=== PATIENT | female | born 1950 | race Caucasian/White ===

== ENCOUNTER 2017-01-21 14:02 | Emergency (ER) | payer MEDICARE, MEDICAID ==
[~2017-01-21] VITALS: Ht 165.1 cm; Wt 83.1 kg
[~2017-01-21 14:02] MED LIST: ALPR-240 PO; CYAN10009 PO; FLAX100011 PO; FURO80TA63 PO; GLUC-100 PO; LEVO125T11 PO; MOME17SP2 EA NOSTRIL; MULT-806 PO; NAPR220C11 PO; POTA20TA10 PO; PROP40TA PO; QUET25TA19 PO; SPIR25TA69 PO; TRAM-261 PO; VITA400T7 PO
--- OUTSIDE RECORDS SUMMARY | 2017-01-21 14:08 | XMS REPORT | Referral Summary ---
Author Author [facility] Organization [facility] Address Unknown Phone Unavailable Care Team Providers Care Dining Host Name Role Phone Abby Singh Primary Care Physician [phone] Encounter VC Date(s): 11/16/16 - 11/16/16 [facility] [address] [place] [address] [place] [id number] Discharge Diagnosis: S/p laparoscopic cholecystectomy Discharge Disposition: 01-Home or Self Care Attending Physician: Deandre Murguia MD Admitting Physician: Deandre Murguia MD Referring Physician: Tunde Singh MD Vital Signs Most recent to 1 oldest [Reference Range]: Temperature Tympanic 36.6 degC [36.6-38.1 degC] (11/16/16 10:28 AM) Problem List Condition Effective Dates Status Health Status Informant Alopecia(Confirmed) Active Anxiety state, Active unspecified(Confirme d) Abnormal blood Active sugar(Confirmed) Cardiomegaly(Confirm Active ed) Cataracts(Confirmed) Active Chronic Active fatigue(Confirmed) Chronic urinary Active tract infection(Confirmed) Bone spurs - Active neck(Confirmed) Thyroid Active disease(Confirmed) Other diseases of Active nasal cavity and sinuses(Confirmed) Disturbance of Active salivary secretion(Confirmed) Edema(Confirmed) Active Blood pressure Active elevated(Confirmed) Fibromyalgia(Confirm Active ed) Goiter(Confirmed) Active Hearing Active loss(Confirmed) Hypothyroidism(Confi Active rmed) Cerumen Active impaction(Confirmed) Elevated blood Active sugar(Confirmed) Hepatitis(Confirmed) Active Irregular Active heartbeat(Confirmed) Jaundice(Confirmed) Active Joint Active pain(Confirmed) Chronic knee Active pain(Confirmed) Obesity(Confirmed) Active Obesity(Confirmed) Active patient Obesity(Confirmed) Active patient OA Active (osteoarthritis)(Con firmed) Palpitations(Confirm Active ed) Chronic venous Active insufficiency(Confir med) Chronic Active insomnia(Confirmed) Plantar fasciitis, Active right(Confirmed) Rheumatic fever x Active 3(Confirmed) STD (sexually Active transmitted disease)(Confirmed) Tendonitis(Confirmed Active ) Tinnitus(Confirmed) Active Allergies, Adverse Reactions, Alerts Substance Reaction Severity Status acetaminophen Active HYDROcodone Active ibuprofen Active Kenalog Active sulfanilamide topical Active Medications acyclovir 200 mg oral capsule See Instructions, TAKE ONE CAPSULE 5 TIMES DAILY FOR 5 DAYS., # 25 caps, eRx: [facility] #[id number], TAKE ONE CAPSULE 5 TIMES DAILY FOR 5 DAYS. Start Date: 10/10/16 Status: Ordered Aleve 220 mg, Oral, q12hr, 0 Refill(s) Start Date: 04/17/14 Status: Ordered ALPRAZolam 0.25 mg oral tablet 0.25 mg 1 tabs, Oral, BID, MUST LAST 30 DAYS may refill 11/16/2016 N LANI, # 60 tabs, 0 Refill(s) Start Date: 11/15/16 Status: Ordered Daily Multi 1 tabs, Oral, Daily, 0 Refill(s) Start Date: 04/17/14 Status: Ordered furosemide 80 mg oral tablet See Instructions, TAKE ONE-HALF TABLET BY MOUTH TWO TIMES A DAY, # 90 tabs, eRx : [facility] #[id number] Start Date: 11/02/16 Status: Ordered Glucosamine & Chondroitin with MSM 1 tabs, Oral, Daily, 0 Refill(s) Start Date: 04/17/14 Status: Ordered Klor-Con M20 oral tablet, extended release See Instructions, TAKE ONE TABLET BY MOUTH TWICE A DAY, # 60 tabs, eRx: [facility] #[id number] Start Date: 10/24/16 Status: Ordered levothyroxine 125 mcg (0.125 mg) oral tablet See Instructions, TAKE ONE TABLET BY MOUTH DAILY FOR 14 DAYS., # 14 tabs, eRx: [facility] #[id number], TAKE ONE TABLET BY MOUTH DAILY FOR 14 DAYS. MUST HAVE APPOINTMENT TO RECHECK LAB BEFORE NEXT FILL. Start Date: 09/05/16 Status: Ordered magnesium oxide 500 mg, Oral, Daily, 0 Refill(s) Start Date: 04/17/14 Status: Ordered Nasonex 50 mcg/inh nasal spray 2 sprays, Nasal, BID, # 17 g, 0 Refill(s), samples given to patient (Rx) Start Date: 07/04/16 Status: Ordered propranolol 40 mg oral tablet See Instructions, TAKE ONE TABLET BY MOUTH TWICE A DAY, # 60 tabs, eRx: [facility] #[id number] Start Date: 11/05/16 Status: Ordered SEROquel 25 mg oral tablet See Instructions, TAKE ONE TABLET BY MOUTH EVERY NIGHT AT BEDTIME NEEDED FOR INSOMNIA, # 60 tabs, eRx: [facility] #[id number], TAKE ONE TABLET BY MOUTH EVERY NIGHT AT BEDTIME NEEDED FOR INSOMNIA Start Date: 01/18/16 Status: Ordered spironolactone 25 mg oral tablet See Instructions, TAKE ONE TABLET BY MOUTH DAILY, # 90 tabs, eRx: [facility] #[id number] Start Date: 10/24/16 Status: Ordered traMADol 50 mg oral tablet 1-2 tabs, Oral, q6hr, 0 Refill(s) Start Date: 04/17/14 Status: Ordered Vitamin B12 1,000 mcg, Oral, Daily, 0 Refill(s) Start Date: 04/17/14 Status: Ordered Results No data available for this section Immunizations Given and Recorded Vaccine Date Status Refusal Reason influenza virus vaccine, inactivated1 08/12/15 Recorded influenza virus vaccine, inactivated 08/12/15 Recorded pneumococcal 13-valent conjugate vaccine2 08/12/15 Recorded pneumococcal 13-valent conjugate vaccine 08/12/15 Recorded 1[facility] 2[facility] Procedures Procedure Date Related Diagnosis Body Site Laparoscopic cholecystectomy1 10/19/16 Arthroscopy of shoulder - L debridement, SAD 03/17/10 Colonoscopy 12/2005 Arthroscopy of knee - L Arthroscopy of shoulder - x 2 Cataract extraction section Hysterectomy Repair of retinal detachment - R eye Tonsillectomy 1Robotic-assisted, for symptomatic cholelithiasis Social History Social History Type Response Smoking Status Former smoker; Date Last Use: PREVIOUSLY SMOKED IN HER 20'S Assessment and Plan Extracted from: Title: Office Visit Note Author: Deandre Murguia MD Date: 11/16/16 Assessment/Plan 1.S/p laparoscopic cholecystectomy Ordered: Postoperative Est [id number] Plan:Return to my office on when necessary basis. Patient returned to PCP for ongoing care. I informed the patient that I am pleased with her surgical outcome. I informed the patient that it is my intuition that thismild abdominal discomfort will improvewith time. Patient was informed that if her abdominal pain would become worseor failed to completely resolve she should return to the office further evaluation. Otherwise patient returned to PCP for ongoing medical care.
--- OUTSIDE RECORDS SUMMARY | 2017-01-21 14:08 | XMS REPORT | Referral Summary ---
Author Author [facility] Organization [facility] Address Unknown Phone Unavailable Care Team Providers Care Pocket Operator Name Role Phone Abby Singh Primary Care Physician [phone] Encounter VC Date(s): 10/13/16 - 10/13/16 [facility], [address] [place] [id number]- Discharge Disposition: 01-Home or Self Care Attending Physician: Osito Akhtar APRN Admitting Physician: Osito Akhtar APRN Vital Signs Most recent to 1 oldest [Reference Range]: Temperature Tympanic 36.9 degC [36.6-38.1 degC] (10/13/16 1:53 PM) Peripheral Pulse 71 bpm Rate [60-100 bpm] (10/13/16 1:53 PM) Blood Pressure 124/78 mmHg [90-140/60-90 mmHg] (10/13/16 1:53 PM) SpO2 97 % (10/13/16 1:53 PM) Problem List Condition Effective Dates Status Health [...] FOR 5 DAYS., # 25 caps, eRx: [facility] #[id number], TAKE ONE CAPSULE 5 TIMES DAILY FOR 5 DAYS. Start Date: 10/10/16 Status: Ordered Aleve 220 mg, Oral, q12hr, 0 Refill(s) Start Date: 04/17/14 Status: Ordered ALPRAZolam 0.25 mg oral tablet 0.25 mg 1 tabs, Oral, BID, MUST LAST 30 DAYS N LANI, # 60 tabs, 0 Refill(s ) Start Date: 09/16/16 Status: Ordered Daily Multi 1 tabs, Oral, Daily, 0 Refill(s) Start Date: 04/17/14 Status: Ordered Diflucan 200 mg oral tablet See Instructions, Take 1 tab po one time per week., # 14 tabs, 0 Refill(s), Pharmacy: [facility] #[id number], Take 1 tab po one time per week. Start Date: 07/19/16 Status: Ordered furosemide 80 mg oral tablet See Instructions, TAKE 1/2 TABLET BY MOUTH TWO TIMES A DAY, # 90 tabs, eRx: [facility] #[id number], TAKE 1/2 TABLET BY MOUTH TWO TIMES A DAY Start Date: 05/10/16 Status: Ordered Glucosamine & Chondroitin with MSM 1 tabs, Oral, Daily, 0 Refill(s) Start Date: 04/17/14 Status: Ordered Klor-Con M20 oral tablet, extended release See Instructions, TAKE ONE TABLET BY MOUTH TWICE A DAY, # 60 tabs, eRx: [facility] #[id number], TAKE ONE TABLET BY MOUTH TWICE A DAY Start Date: 08/15/16 Status: Ordered levothyroxine 125 mcg (0.125 mg) oral tablet See Instructions, TAKE ONE TABLET BY MOUTH DAILY FOR 14 DAYS., # 14 tabs, eRx: [facility] #[id number], TAKE ONE TABLET BY MOUTH DAILY FOR [...] TWICE A DAY, # 60 tabs, eRx: [facility] #[id number], TAKE ONE TABLET BY MOUTH TWICE A DAY Start Date: 10/08/16 Status: Ordered SEROquel 25 mg oral tablet See Instructions, TAKE ONE TABLET BY MOUTH EVERY NIGHT AT BEDTIME NEEDED FOR INSOMNIA, # 60 tabs, eRx: [facility] #[id number], TAKE ONE TABLET BY MOUTH EVERY NIGHT AT BEDTIME NEEDED FOR INSOMNIA Start Date: 01/18/16 Status: Ordered spironolactone 25 mg oral tablet See Instructions, TAKE ONE TABLET BY MOUTH DAILY, # 90 tabs, 1 Refill(s), eRx: [facility] #[id number], TAKE ONE TABLET BY MOUTH DAILY Start Date: 04/28/16 Status: Ordered traMADol 50 mg oral tablet 1-2 tabs, Oral, q6hr, 0 Refill(s) Start Date: 04/17/14 Status: Ordered Vitamin B12 1,000 mcg, Oral, Daily, 0 Refill(s) Start Date: 04/17/14 Status: Ordered Results Hematology Most recent to 1 oldest [Reference Range]: WBC [5.0-10.0 7.1 10*3/uL 10*3/uL] (10/13/16 2:35 PM) RBC [3.70-5.20] 4.43 (10/13/16 2:35 PM) Hgb [12.0-16.0 14.0 gm/dL gm/dL] (10/13/16 2:35 PM) Hct [37.0-47.0 %] 40.2 % (10/13/16 2:35 PM) MCV [80.0-96.0 fL] 90.7 fL (10/13/16 2:35 PM) MCH [26.0-34.0 pg] 31.6 pg (10/13/16 2:35 PM) MCHC [32.0-36.0 34.8 gm/dL gm/dL] (10/13/16 2:35 PM) RDW [0.0-14.5 %] 12.8 % (10/13/16 2:35 PM) Platelet [150-400 192 10*3/uL 10*3/uL] (10/13/16 2:35 PM) MPV [8.8-14.8 fL] 11.6 fL (10/13/16 2:35 PM) Neutrophils [50-70 42 % %] *LOW* (10/13/16 2:35 PM) Lymphocytes [20-40 42 % %] *HI* (10/13/16 2:35 PM) Monocytes [4-8 %] 12 % *HI* (10/13/16 2:35 PM) Eosinophils [0-6 %] 4 % (10/13/16 2:35 PM) Basophils [0-2 %] 0 % (10/13/16 2:35 PM) Neutro Absolute 3.00 10*3 [2.50-7.00 10*3] (10/13/16 2:35 PM) Lymph Absolute 2.97 10*3 [1.00-4.00 10*3] (10/13/16 2:35 PM) [place] Absolute 0.87 10*3 [0.20-0.80 10*3] *HI* (10/13/16 2:35 PM) Eos Absolute 0.28 10*3 [0.00-0.60 10*3] (10/13/16 2:35 PM) Baso Absolute 0.02 [0.00-0.30] (10/13/16 2:35 PM) Chemistry Most recent to 1 oldest [Reference Range]: Lipase Lvl [8-78 54 U/L U/L] (10/13/16 2:35 PM) Amylase Lvl [25-125 56 U/L U/L] (10/13/16 2:35 PM) Urinalysis Most recent to 1 oldest [Reference Range]: UA Color Lt Yellow (10/13/16 2:44 PM) UA Appear Clear (10/13/16 2:44 PM) UA pH [5.0-8.0] 6.5 (10/13/16 2:44 PM) UA Leuk Est Negative [Negative] (10/13/16 2:44 PM) UA Nitrite Negative [Negative] (10/13/16 2:44 PM) UA Protein Negative [Negative] (10/13/16 2:44 PM) UA Glucose Negative [Negative] (10/13/16 2:44 PM) UA Ketones Negative [Negative] (10/13/16 2:44 PM) UA Urobilinogen 0.2 mg/dL [<=1.0 mg/dL] (10/13/16 2:44 PM) UA Bili [Negative] Negative (10/13/16 2:44 PM) UA Blood [Negative] Negative (10/13/16 2:44 PM) UA Spec Grav 1.010 [1.003-1.030] (10/13/16 2:44 PM) Type Clean Catch (10/13/16 2:44 PM) Immunizations Vaccine Date Refusal Reason influenza virus vaccine, inactivated1 08/12/15 influenza virus vaccine, inactivated 08/12/15 pneumococcal 13-valent conjugate vaccine2 08/12/15 pneumococcal 13-valent conjugate vaccine 08/12/15 1Location History: [facility] 2[facility] History[facility] Procedures Procedure Date Related Diagnosis Body Site Arthroscopy of shoulder - L debridement, SAD 03/17/10 Colonoscopy 12/2005 Arthroscopy of knee - L Arthroscopy of shoulder - x 2 Cataract extraction section Hysterectomy Repair of retinal detachment - R eye Tonsillectomy Social History Social History Type Response Smoking Status Never smoker Assessment and Plan Extracted from: Title: Call from patient Author: Mesha Phoenix RN Date: 10/13/16 Call from patient concerned that she is in alot of pain and can't take Aleve till 6 pm. She also has Tramadol but doesn't like to take because makes her feel drowsy and she says she also uses a heating pad. Reported to patient that Capo Javier recommends she take Tramadol 1/2 pill to help with pain and if gets drowsy might help with sleeping tonight. Patient has Nohemy sono scheduled at8:30 am, NPO after midnight. Will call back as needed.
--- OUTSIDE RECORDS SUMMARY | 2017-01-21 14:08 | XMS REPORT | Continuity of Care Document ---
Author Author [facility] Organization [facility] Address Unknown Phone Unavailable Support Name Relationship Address Phone ALEXANDER RAFAEL CHAVEZ Caregiver [facility] [address] [address] JENNIFER DOMINGO MD Caregiver [address] [place] [address] [place] [phone] NAGI WILLS Next Of Kin [address] [place] [address] Insurance Providers Payer Name Policy Number Subscriber Name Relationship Medicare [id number] Lauryn Barbour 18 Self Medicaid [id number] Lauryn Barbour 18 Self Advance Directives Directive Response Recorded Date/Time Advanced Directives Type None 12/30/14 12:55pm Problems Medical Problems Problem Onset Date Status Viral Infection not otherwise specified Unknown Active Constipation Unknown Active Medications Medication Dose Route Sig Days/Qty Instructions Order Date Discontinued Date Status Alprazolam 1 Tab PO TWICE A DAY 05/26/10 Active Furosemide 80 Mg PO DAILY 05/02/10 Active Propranolol Hcl 1 Tab PO TWICE A DAY 05/26/10 Active Potassium Chloride 1 Tab PO TWICE A DAY 03/17/10 05/02/10 Discontinued [Levoxyl] 0.88 Mg PO DAILY 05/26/10 Active Meloxicam 1 - 2 Tab PO NEEDED 04/07/09 03/16/10 Discontinued Estrogens,Conjugated 1 Tab PO WEEKLY 05/26/10 03/12/11 Discontinued Quetiapine Fumarate 0.25 Tab PO BEDTIME 05/02/10 Active Spironolactone 1 Tab PO DAILY 05/02/10 Active [place]-3 Fatty Acids 1 Cap PO DAILY 03/17/10 05/02/10 Discontinued Flaxseed Oil 1 Cap PO DAILY 05/26/10 Active Pyridoxine Hcl 1 Tab PO DAILY 04/07/09 03/16/10 Discontinued Ergocalciferol 1 Tab PO DAILY 05/26/10 05/27/13 Discontinued Tramadol Hcl 50 Mg PO NEEDED 03/17/10 05/02/10 Discontinued Gluc Uriarte/Chondro Uriarte A/Vit C/Mn 1 Cap PO THREE TIMES A DAY 05/26/10 Active Vitamin C03-[id number] Factor 1 Cap PO DAILY 05/26/10 05/27/13 Discontinued Multivitamins 1 Tab PO DAILY 05/26/10 Active Potassium Chloride 25 Meq PO DAILY 05/26/10 Active [Tylenol] 1 Tab PO NEEDED 05/26/10 03/12/11 Discontinued Pyridoxine Hcl 1 Tab PO DAILY 05/26/10 05/27/13 Discontinued Vitamin E 2 Tab PO DAILY 05/26/10 03/12/11 Discontinued [Zinc Sulfate] 1 Tab PO THREE TIMES A DAY 05/26/10 03/12/11 Discontinued Tramadol Hcl 1 Tab PO NEEDED 05/29/10 Active Naproxen Sodium 220 Mg PO TWICE A DAY 01/13/13 Active Cinnamon Bark 500 Mg PO DAILY 01/13/13 05/27/13 Discontinued Multivits,Therap W-Fe,Hematin 1 Tab PO DAILY 08/24/13 Active Social History Social History Problem Response Recorded Date/Time Chewing Tobacco Status No 01/11/2014 8:59am Hx Substance Use No 12/30/2014 3:08pm Hx Alcohol Use No 12/30/2014 3:08pm Has the pt used tobacco in the last 12 months No 05/27/2013 12:34pm Query Response Start Date Stop Date Smoking Status Never smoker Hospital Discharge Instructions No hospital discharge instructions. Plan of Care No plan of care. Functional Status Query Response Date Recorded Physical Hygiene Self December 30, 2014 3:08pm Disabilities None December 30, 2014 3:08pm Devices Used Glasses December 30, 2014 3:08pm Dressing Self December 30, 2014 3:08pm Ambulation Self December 30, 2014 3:08pm Diet Self December 30, 2014 3:08pm Mental Status Alert Oriented December 30, 2014 3:08pm Disabilities None December 30, 2014 3:08pm Devices Used Glasses December 30, 2014 3:08pm Physical Hygiene Self December 30, 2014 3:08pm Dressing Self December 30, 2014 3:08pm Ambulation Self December 30, 2014 3:08pm Diet Self December 30, 2014 3:08pm Allergies, Adverse Reactions, Alerts Allergen Type Severity Reaction Status Last Updated hydrocodone bit Adverse Reaction Unknown GETS FLUSHED Active 12/30/14 triamcinolone acetonide Allergy Intermediate FLUSHED AND RED Active Sulfa (Sulfonamide Antibiotics) Allergy Unknown HIVES Active 12/30/14 Acetaminophen Adverse Reaction Unknown GETS FLUSHED Active 12/30/14 Ibuprofen Allergy Mild RED FACE, HOT Active 12/30/14 Immunizations Name Given Type Hx Influenza Vaccination Y FALL 2013 Historical Hx Pneumococcal Vaccination Yes Historical Hx Influenza Vaccination Y FALL 2013 Historical Vital Signs Acute Vital Signs Vital Response Date/Time Temperature (Fahrenheit) 98.1 deg F (96.8 - 99.1) Temperature (Calculated Celsius) 36.13973 degrees C (36.0 - 37.3) Pulse Rate (adult) 63 bpm (60 - 100) Respiratory Rate 16 breaths/min (10 - 20) O2 Sat by Pulse Oximetry 98 % (90 - 100) Blood Pressure 120/68 mm Hg Height 5 ft 5 in Weight 195 lb Body Mass Index 32.0 kg/m^2 Results Test Source Date Result Interp. Ref. Range Comments Activated Partial Thromboplast Time May 28, 2013 9:20am 34.1 SEC N 24- 36 COMMENT NSC WILL CALL Alanine Aminotransferase (ALT/SGPT) December 30, 2014 1:41pm 42 U/L N 9- 52 Albumin December 30, 2014 1:41pm 4.5 G/DL N 3.5-5.0 Albumin/Globulin Ratio December 30, 2014 1:41pm 1.3 RATIO N 1.1-2.2 Alkaline Phosphatase December 30, 2014 1:41pm 101 U/L N 38-126 Amylase Level December 30, 2014 1:41pm 75 U/L N 30-110 Anion Gap December 30, 2014 1:41pm 13 MEQ/L N 5-15 Aspartate Amino Transf (AST/SGOT) December 30, 2014 1:41pm 45 U/L H 14- 36 BUN/Creatinine Ratio December 30, 2014 1:41pm 22 RATIO N 6-26 Band Neutrophils # January 11, 2014 9:30am 0.2 T/MM3 - Band Neutrophils % January 11, 2014 9:30am 2.0 % N 0-6 Basophils # (Auto) December 30, 2014 1:41pm 0.0 T/MM3 N 0-0.2 Basophils (%) (Auto) December 30, 2014 1:41pm 0.3 % N 0-2 Blood Urea Nitrogen December 30, 2014 1:41pm 20.0 MG/DL H 7-17 C-Reactive Protein May 18, 2012 11:46am < 5.0 MG/L 0-9 Calcium Level December 30, 2014 1:41pm 10.5 MG/DL H 8.4-10.2 Calculated Osmolality December 30, 2014 1:41pm 272 MOSM/KG N 261-280 Carbon Dioxide Level December 30, 2014 1:41pm 29 MEQ/L N 22-30 Chemistry Specimen Hemolysis December 30, 2014 1:41pm 23 N 0-25 0-25: No Hemolysis.26-70: Slight Hemolysis - can falsely elevate K and Urine Protein. 71-285: Moderate Hemolysis - can falsely elevate K, Troponin I, CA 19-9, PTH, CSF GLucose, and Urine Protein, and can falsely decrease Phenytoin. 286-999: Gross Hemolysis - can falsely elevate K, Troponin I, CA 19-9, PTH, CSF Glucose, and Urine Protine, and can falsely decrease Phenytoin. Recommend specimen recollection. Chloride Level December 30, 2014 1:41pm 98 MEQ/L N 98-107 Creatinine December 30, 2014 1:41pm 0.9 MG/DL N 0.7-1.2 Eosinophils # (Auto) December 30, 2014 1:41pm 0.4 T/MM3 N 0-0.5 Eosinophils # (Manual) January 11, 2014 9:30am 0.1 T/MM3 N 0-0.5 Eosinophils % (Manual) January 11, 2014 9:30am 1.0 % N 0-4 Eosinophils (%) (Auto) December 30, 2014 1:41pm 5.3 % H 0-4 Erythrocyte Sedimentation Rate March 02, 2009 3:00pm 19 MM/HR - Globulin December 30, 2014 1:41pm 3.4 G/DL N 2.4-3.6 Glomerular Filtration Rate Calc December 30, 2014 1:41pm 63 - Glucose Level December 30, 2014 1:41pm 98 MG/DL N 65-110 HIV (1&2) Antibody Rapid March 17, 2010 9:50am Negative - Hematocrit December 30, 2014 1:41pm 43.0 % N 36-46 Hemoglobin December 30, 2014 1:41pm 15.0 GM/DL N 12-16 Hepatitis B Surface Antigen March 17, 2010 9:50am Negative - Hepatitis C Antibody March 17, 2010 9:50am Negative - Icterus Index December 30, 2014 1:41pm < 2 0-7 Immature Granulocyte # (Auto) December 30, 2014 1:41pm 0.01 T/MM3 N 0.00 -0.03 Immature Granulocyte % (Auto) December 30, 2014 1:41pm 0.2 % N 0.0-0.5 Influenza Type A Antigen August 24, 2013 10:16am Negative - Negative for Flu A protein antigen. Assay sensitivity isbetween 65-83%. A negative result does not exclude influenza virus infection. "Influenza FA" may be ordered if clinical presentation warrants confirmatory testing. Influenza Type B Antigen August 24, 2013 10:16am Negative - Negative for Flu B protein antigen. Assay sensitivity isbetween 65-83%. A negative result does not exclude influenza virus infection. "Influenza FA" may be ordered if clinical presentation warrants confirmatory testing. Lab Scanned Report January 16, 2014 10:14am LAB RESULTS - SCANNED [id number] - Lipase December 30, 2014 1:41pm 195 U/L N 23-300 Lymphocytes # (Auto) December 30, 2014 1:41pm 3.0 T/MM3 N 1-4.8 Lymphocytes # (Manual) January 11, 2014 9:30am 2.3 T/MM3 N 1-4.8 Lymphocytes % (Manual) January 11, 2014 9:30am 22.0 % L 23-45 Lymphocytes (%) (Auto) December 30, 2014 1:41pm 44.8 % N 23-45 Mean Corpuscular Hemoglobin December 30, 2014 1:41pm 31.3 UUG N 26-34 Mean Corpuscular Hemoglobin Concent December 30, 2014 1:41pm 34.9 GM/DL N 31-37 Mean Corpuscular Volume December 30, 2014 1:41pm 89.6 UM3 N 80-100 Mean Platelet Volume December 30, 2014 1:41pm 11.1 UM3 N 9.4-12.4 Monocytes # (Auto) December 30, 2014 1:41pm 0.8 T/MM3 N 0-0.8 Monocytes # (Manual) January 11, 2014 9:30am 1.1 T/MM3 H 0-0.8 Monocytes % (Manual) January 11, 2014 9:30am 10.0 % H 0-9.0 Monocytes (%) (Auto) December 30, 2014 1:41pm 11.6 % H 0-9.0 SB-Uvg-D-Type Natriuretic Peptide August 24, 2013 10:16am 86 PG/ML N 0- 175 Rule in cut points: <50 years old=450; 50-75 years old=900; >75 years old=1800; When utilizing ProBNP rule-in cut points, adjustment for impaired renal function is typically not required. Neutrophils # (Auto) December 30, 2014 1:41pm 2.5 T/MM3 N 1.8-7.7 Neutrophils # (Manual) January 11, 2014 9:30am 6.9 T/MM3 N 1.8-7.7 Neutrophils % (Manual) January 11, 2014 9:30am 65.0 % N 33-66 Neutrophils (%) (Auto) December 30, 2014 1:41pm 37.8 % N 33-66 Platelet Count December 30, 2014 1:41pm 185 T/MM3 N 130-400 Potassium Level December 30, 2014 1:41pm 4.2 MEQ/L N 3.6-5 Prothromb Time International Ratio May 28, 2013 9:20am 1.18 H 0.86- 1.10 THERAPUTIC RANGE=2.00-3.00 FOR ANTI-THROMBOSIS THERAPUTIC RANGE=2.50- 3.50 FOR IMPLANTED VALVE RDW Standard Deviation December 30, 2014 1:41pm 43.0 FL N 36.9-50.2 Red Blood Count December 30, 2014 1:41pm 4.80 M/MM3 N 4.00-5.20 Sodium Level December 30, 2014 1:41pm 140 MEQ/L N 134-144 Thyroid Stimulating Hormone (TSH) February 09, 2009 9:27am 6.80 MIU/ML H 0.47-4.68 Total Bilirubin December 30, 2014 1:41pm 0.60 MG/DL N 0.20-1.30 Total Protein December 30, 2014 1:41pm 7.9 G/DL N 6.3-8.2 Troponin I August 24, 2013 10:16am < 0.012 ng/ml 0-0.12 Turbidity December 30, 2014 1:41pm < 20 0-20 Urine Bacteria December 30, 2014 2:30pm Trace H - Has specimen been collected/obtained? Y Urine Bilirubin December 30, 2014 2:30pm Negative - Has specimen been collected/obtained? Y Urine Blood December 30, 2014 2:30pm Negative - Has specimen been collected/obtained? Y Urine Collection Type December 30, 2014 2:30pm Voided-not cc-midstr - Has specimen been collected/obtained? Y Urine Color December 30, 2014 2:30pm Yellow - Has specimen been collected/obtained? Y Urine Culture Indicated January 11, 2014 9:10am Cult reflexed &setup - Has specimen been collected/obtained? Y Urine Glucose (UA) December 30, 2014 2:30pm Negative - Has specimen been collected/obtained? Y Urine Ketones December 30, 2014 2:30pm Negative - Has specimen been collected/obtained? Y Urine Leukocyte Esterase December 30, 2014 2:30pm 1+ H - Has specimen been collected/obtained? Y Urine Nitrite December 30, 2014 2:30pm Negative - Has specimen been collected/obtained? Y Urine Protein December 30, 2014 2:30pm Negative - Has specimen been collected/obtained? Y Urine RBC December 30, 2014 2:30pm None seen /HPF - Has specimen been collected/obtained? Y Urine Specific [place] December 30, 2014 2:30pm <=1.005 L - Has specimen been collected/obtained? Y Urine Squamous Epithelial Cells December 30, 2014 2:30pm 0-5 - Has specimen been collected/obtained? Y Urine Turbidity December 30, 2014 2:30pm Clear - Has specimen been collected/obtained? Y Urine Urobilinogen December 30, 2014 2:30pm 0.2 EU/DL - Has specimen been collected/obtained? Y Urine WBC December 30, 2014 2:30pm 1-3 /HPF - Has specimen been collected/obtained? Y Urine pH December 30, 2014 2:30pm 6.0 - Has specimen been collected/ obtained? Y Vitamin D 1,25-Dihydroxy February 09, 2009 9:27am Send out - White Blood Count December 30, 2014 1:41pm 6.6 T/MM3 N 4.5-11.0 Urine Culture Urine, Clean Catch-Midstream January 11, 2014 9:47am Pseudomonas Aeruginosa Name: LAURYN BARBOUR Unit #: [id number] : [id number] Sex: F Loc / Svc: ED DOS: 12/30/14 Signed Report #: [id number] DIAGNOSTIC IMAGING REPORT TYPE OF EXAM: KUB W/UPRIGHT Dictated By: REY POPE MD Indication: ITS.REASON: bloating with diffuse abdominal pain KUB W/UPRIGHT: Comparison: January 08, 2014 Findings: The visualized lung bases are clear. There is no free air on the upright view. The bowel gas pattern is nonobstructive and nonspecific. Gas is seen in nondilated small and large bowel to the level of the rectum. Large amount of stool is seen throughout the colon. Impression: Nonobstructive nonspecific bowel gas pattern. Increased colonic stool burden suggesting constipation. . Procedures Procedure Status Date Provider(s) COMP SCREEN MAMMOGRAM ADD-ON completed 11/24/14 [id number]"SCREENING MAMMOGRAPHY, PRODUCING DIRECT DIGITAL IMAGE completed EXTREMITY STUDY completed 10/17/14 Encounters Encounter Location Date/Time Departed Emergency Room [facility] 12/30/14 12:52pm Registered Clinic [facility] 11/24/14 11:12am Registered Clinic [facility] 10/17/14 11:05am Recent Diagnosis
--- OUTSIDE RECORDS SUMMARY | 2017-01-21 14:08 | XMS REPORT | Continuity of Care Document ---
Author Author [facility] Organization [facility] Address Unknown Phone Unavailable Support Name Relationship Address Phone ARMAND SHOEMAKER MD Caregiver [address] [place] [address] Unavailable MARCHTRINITY DO Caregiver [address] [address] Unavailable NAGI WILLS Next Of Kin [address] [place] [address] Insurance Providers Guarantor Lauryn Barbour Address [address] [place] [address] Email [email or web address] Payer Medicaid Policy Number [id number] Subscriber's Name Lauryn Barbour Relationship 18 Self Effective Date 16 Expiration Date 16 Payer Medicare Policy Number [id number] Subscriber's Name Lauryn Barbour Relationship 18 Self Effective Date 01 Advance Directives Directive Response Recorded Date/Time Advanced Directives Type None 10/31/16 10:40am Chief Complaint and Reason for Visit Chief Complaint Lower Extremity Injury Reason for Visit [id number] Problems Active Problems Medical Problem Onset Date Status Abrasion Unknown Acute Cellulitis of right lower leg Unknown Acute Constipation Unknown Acute Fall Unknown Acute Hypothyroidism Unknown Acute Minor head injury without loss of consciousness Unknown Acute Neck pain, acute Unknown Acute Viral Infection not otherwise specified Unknown Acute Past Problems Medical Problem Onset Date Cholelithiases Unknown Fibula fracture Unknown Medications Current Home Medications Medication Dose Units Route Directions Days Qty Instructions Start Date Alprazolam 0.25 Mg Tablet 0.25 Mg Oral Twice A Day 05/26/10 Cyanocobalamin (Vitamin B-12) (Vitamin B-12) 1,000 Mcg Tablet 1,000 Mcg Oral Daily 10/18/16 Flaxseed Oil (Flax Oil) 1,000 Mg Capsule 1,000 Mg Oral Daily 26/08 Furosemide 80 Mg Tablet 80 Mg Oral Daily 05/02/10 Gluc/Enoc-Msm#2/C/D3/Demetrius/Born (Hffztrapue-Ggxgxawxtyr-Ltb Tab) 1 Each Tablet 1 Tab Oral Daily 10/31/16 Levothyroxine Sodium 125 Mcg Tablet 125 Mcg Oral Before Breakfast 10/31/16 Mometasone Furoate (Nasonex) 120 [place]/17 G [place] 2 [place] Each Nostril Twice A Day 10/18/16 Multivitamins (Multivitamin) 1 Tab Tablet 1 Tab Oral Daily Naproxen Sodium (Aleve) 220 Mg Capsule 220 Mg Oral Twice A Day Potassium Chloride (Klor-Con M20) 20 Meq Tablet 20 Meq Oral Twice A Day 02/25/16 Propranolol Hcl (Inderal) 40 Mg Tablet 40 Mg Oral Twice A Day 26/08 Quetiapine Fumarate (Seroquel) 25 Mg Tablet 0.5 Tab Oral Bedtime 05/02/10 Spironolactone 25 Mg Tablet 25 Mg Oral Daily 05/02/10 Tramadol Hcl (Ultram) 50 Mg Tablet 25 Mg Oral Twice A Day as needed for Pain 05/29/10 Vitamin E Acid Succinate (Vitamin E) 400 Unit Tablet 400 Unit Oral Daily 10/31/16 Past Home Medications Medication Directions Ordered Status Cinnamon Bark (Cinnamon) 500 Mg Capsule, 500 Mg Oral Daily 01/13/13 Discontinued Ergocalciferol (Vitamin D) 400 Unit Tablet, 1 Tab Oral Daily 05/26/10 Discontinued Estrogens,Conjugated (Premarin) 0.625 Mg Tablet, 1 Tab Oral Weekly 05/26/10 Discontinued Meloxicam (Mobic) 15 Mg Tablet, 1 - 2 Tab Oral As Needed 04/07/09 Discontinued [place]-3 Fatty Acids (Fish Oil) 500 Mg Capsule, 1 Cap Oral Daily 03/17/10 Discontinued Potassium Chloride (K-Dur) 10 Meq Tab.prt.sr, 1 Tab Oral Twice A Day Discontinued Pyridoxine Hcl (Vitamin B6) 100 Mg Tablet, 1 Tab Oral Daily 05/26/10 Discontinued Pyridoxine Hcl (Vitamin B-6) 100 Mg Tablet, 1 Tab Oral Daily 04/07/09 Discontinued Tramadol Hcl 50 Mg Tablet, 50 Mg Oral As Needed 03/17/10 Discontinued Tylenol 500 Mg Tablet, 1 Tab Oral As Needed 05/26/10 Discontinued Vitamin W19-Okhgreqhz Factor (Martinic) 1 Cap Capsule, 1 Cap Oral Daily 05/26 Discontinued Vitamin E 200 Unit Tablet, 2 Tab Oral Daily 05/26/10 Discontinued Zinc Sulfate , 1 Tab Oral Three Times A Day 05/26/10 Discontinued Social History Social History Problem Response Recorded Date/Time Onset Date Status Chewing Tobacco Status No 01/11/2014 8:59am Not Applicable Not Applicable Hx Substance Use No 10/31/2016 12:40pm Not Applicable Not Applicable Hx Alcohol Use No 10/31/2016 12:40pm Not Applicable Not Applicable Has the pt used tobacco in the last 12 months No 10/18/2016 2:21pm Not Applicable Not Applicable Tobacco Usage none 02/25/2016 7:06pm Not Applicable Not Applicable Query Response Start Date Stop Date Smoking Status Never smoker Hospital Discharge Instructions No hospital discharge instructions. Plan of Care Discharge Date 10/31/16 1:35pm Disposition 01 DISCHARGED HOME, SELF-CARE Condition at Discharge Stable Instructions/Education Provided DI for Fracture Prescriptions See Medication Section Referrals ARMAND SHOEMAKER MD Address: [address] [place] [address] [place] [phone] Additional Instructions/Education Keep the splint on until you follow up with ortho this week. It would be preferred that you are non-weight bearing on the right leg but if you are unable to use crutches then please use a walker or cane to put as little weight on the right leg as possible. Call tomorrow morning and schedule an appointment for follow up with Dr. Ku or Gregorio. If any increasing abdominal pain, vomiting , or any other concerns then return to ER. Care Plan and Goals Physician Care Plan Problem:Right distal fibula fracture Goal: Follow up with primary care provider Instructions: Take medications and follow care plan as discussed/written Functional Status No functional status results. Allergies, Adverse Reactions, Alerts Allergen Type Severity Reaction Status Last Updated hydrocodone bit Adverse Reaction Unknown GETS FLUSHED Active 10/18/16 triamcinolone acetonide Allergy Intermediate FLUSHED AND RED Active Sulfa (Sulfonamide Antibiotics) Allergy Unknown HIVES Active 10/18/16 Acetaminophen Adverse Reaction Unknown GETS FLUSHED Active 10/18/16 Ibuprofen Allergy Mild RED FACE, HOT Active 10/18/16 Immunizations Query Response on File Recorded Date/Time Hx Influenza Vaccination Y AUG 2016 10/18/16 2:21pm Hx Pneumococcal Vaccination Y AUG 2016, HIGH DOSE 10/18/16 2:21pm Hx Influenza Vaccination Y AUG 2016 10/18/16 2:21pm Influenza Vaccine Hx 08/2110/31/16 12:40pm Tdap Vaccine Hx CURRENT PER PT 10/31/16 10:40am Vital Signs Acute Vital Signs Vital Response Date/Time Temperature (Fahrenheit) 97.8 deg F (96.8 - 99.1) 10/19/2016 4:39pm Temperature (Calculated Celsius) 36.69884 degrees C (36.0 - 37.3) 10/19/2016 4:39pm Temperature Source Oral 10/19/2016 4:39pm Pulse Rate (adult) 69 bpm (60 - 100) 10/31/2016 1:35pm Respiratory Rate 20 breaths/min (10 - 20) 10/31/2016 1:35pm O2 Sat by Pulse Oximetry 97 % (90 - 100) 10/31/2016 1:35pm Oxygen Delivery Method Room Air 10/19/2016 4:39pm Oxygen Delivery Method Room Air 10/19/2016 12:15am Oxygen Flow Rate 1.00 L/min 10/18/2016 11:13pm Blood Pressure 122/60 mm Hg 10/31/2016 1:35pm Blood Pressure Source Automatic Cuff 10/19/2016 4:39pm Height (Feet) 5 feet 10/18/2016 2:16pm Height (Inches) 5.00 inches 10/18/2016 2:16pm Weight (Kilograms) 84.500 kg 10/19/2016 8:26am Body Mass Index (BMI) 29.9 10/18/2016 2:16pm Results Laboratory Results Test Name Result Units Flags Reference Collection Date/Time Result Date/ Time Comments Lipase 164 U/L 23-300 10/16/2016 2:27pm 10/16/2016 3:00pm White Blood Count 7.5 T/MM3 4.5-11.0 10/31/2016 12:36pm 10/31/2016 12: 53pm Red Blood Count 3.91 M/MM3 L 4.00-5.20 10/31/2016 12:36pm 10/31/2016 12: 53pm Hemoglobin 12.2 GM/DL -10/31/2016 12:36pm 10/31/2016 12:53pm Hematocrit 37.1 % 36-46 10/31/2016 12:36pm 10/31/2016 12:53pm Mean Corpuscular Volume 94.9 UM3 80-100 10/31/2016 12:36pm 10/31/2016 12:53pm Mean Corpuscular Hemoglobin 31.2 UUG 26-34 10/31/2016 12:36pm 2015 12:53pm Mean Corpuscular Hemoglobin Concent 32.9 GM/DL 31-37 10/31/2016 12:36pm 10/31/2016 12:53pm RDW Standard Deviation 48.7 FL 36.9-50.2 10/31/2016 12:36pm 10/31/2016 12:53pm Platelet Count 256 T/MM3 130-400 10/31/2016 12:36pm 10/31/2016 12:53pm Mean Platelet Volume 10.9 UM3 9.4-12.4 10/31/2016 12:36pm 10/31/2016 12 :53pm Neutrophils (%) (Auto) 51.5 % 33-66 10/31/2016 12:36pm 10/31/2016 12: 53pm Lymphocytes (%) (Auto) 33.6 % 23-45 10/31/2016 12:36pm 10/31/2016 12: 53pm Monocytes (%) (Auto) 10.1 % H 0-9.0 10/31/2016 12:36pm 10/31/2016 12: 53pm Eosinophils (%) (Auto) 4.1 % H 0-4 10/31/2016 12:36pm 10/31/2016 12: 53pm Basophils (%) (Auto) 0.4 % 0-2 10/31/2016 12:36pm 10/31/2016 12:53pm Immature Granulocyte % (Auto) 0.3 % 0.0-0.5 10/31/2016 12:36pm 2015 12:53pm Absolute Neutrophils (auto) 3.9 T/MM3 1.8-7.7 10/31/2016 12:36pm 2015 12:53pm Absolute Lymphocytes (auto) 2.5 T/MM3 1-4.8 10/31/2016 12:36pm 2015 12:53pm Absolute Monocytes (auto) 0.8 T/MM3 0-0.8 10/31/2016 12:36pm 2015 12:53pm Absolute Eosinophils (auto) 0.3 T/MM3 0-0.5 10/31/2016 12:36pm 2015 12:53pm Absolute Basophils (auto) 0.0 T/MM3 0-0.2 10/31/2016 12:36pm 2015 12:53pm Absolute Immature Granulocyte (auto 0.02 T/MM3 0.00-0.03 10/31/2016 12: 36pm 10/31/2016 12:53pm Icterus Index < 2 0-7 10/31/2016 12:36pm 10/31/2016 1:00pm Chemistry Specimen Hemolysis < 15 0-25 10/31/2016 12:36pm 10/31/2016 1:00pm 0-25: Specimen Exhibited No Hemolysis. Turbidity < 20 0-20 10/31/2016 12:36pm 10/31/2016 1:00pm Sodium Level 139 MEQ/L 134-144 10/31/2016 12:36pm 10/31/2016 1:00pm Potassium Level 4.0 MEQ/L 3.6-5 10/31/2016 12:36pm 10/31/2016 1:00pm Chloride Level 97 MEQ/L L 98-107 10/31/2016 12:36pm 10/31/2016 1:00pm Carbon Dioxide Level 30 MEQ/L 22-30 10/31/2016 12:36pm 10/31/2016 1: 00pm Anion Gap 12 MEQ/L 5-15 10/31/2016 12:36pm 10/31/2016 1:00pm Blood Urea Nitrogen 15.0 MG/DL 7-17 10/31/2016 12:36pm 10/31/2016 1: 00pm Creatinine 0.8 MG/DL 0.7-1.2 10/31/2016 12:36pm 10/31/2016 1:00pm BUN/Creatinine Ratio 19 RATIO 6-26 10/31/2016 12:36pm 10/31/2016 1: 00pm Glomerular Filtration Rate Calc 72 10/31/2016 12:36pm 10/31/2016 1: 00pm Glucose Level 94 MG/DL 65-110 10/31/2016 12:36pm 10/31/2016 1:00pm Calculated Osmolality 269 MOSM/KG 261-280 10/31/2016 12:36pm 2015 1:00pm Calcium Level 9.9 MG/DL 8.4-10.2 10/31/2016 12:36pm 10/31/2016 1:00pm Total Bilirubin 0.90 MG/DL 0.20-1.30 10/31/2016 12:36pm 10/31/2016 1: 00pm Alkaline Phosphatase 140 U/L H 38-126 10/31/2016 12:36pm 10/31/2016 1: 00pm Total Protein 7.7 G/DL 6.3-8.2 10/31/2016 12:36pm 10/31/2016 1:00pm Albumin 4.2 G/DL 3.5-5.0 10/31/2016 12:36pm 10/31/2016 1:00pm Globulin 3.5 G/DL 2.4-3.6 10/31/2016 12:36pm 10/31/2016 1:00pm Albumin/Globulin Ratio 1.2 RATIO 1.1-2.2 10/31/2016 12:36pm 10/31/2016 1:00pm Aspartate Amino Transf (AST/SGOT) 44 U/L H 14-36 10/31/2016 12:36pm 1:00pm Alanine Aminotransferase (ALT/SGPT) 42 U/L 9-52 10/31/2016 12:36pm 1:00pm Procedures Procedure Status Date Provider(s) COMPREHEN METABOLIC PANEL Completed 10/13/16 COMPREHEN METABOLIC PANEL Completed 10/16/16 ASSAY OF LIPASE Completed 10/16/16 COMPLETE CBC W/AUTO DIFF WBC Completed 10/16/16 HYDRATE IV INFUSION ADD-ON Completed 10/16/16 THER/PROPH/DIAG INJ IV PUSH Completed 10/16/16 TX/PRO/DX INJ NEW DRUG ADDON Completed 10/16/16 EMERGENCY DEPT VISIT Completed 10/16/16 640160"INJECTION, ONDANSETRON HYDROCHLORIDE, PER 1 MG" Completed 10/16/16 400047"INFUSION, NORMAL SALINE SOLUTION , 1000 CC" Completed 10/16/16 ROUTINE VENIPUNCTURE Completed 10/18/16 LIVIA GUO MD, FACS, CWS LAPAROSCOPIC CHOLECYSTECTOMY Completed 10/18/16 LIVIA GUO MD, FACS, CWS RICARDO CASTRO APRN, CWS COMPREHEN METABOLIC PANEL Completed 10/18/16 LIVIA GUO MD, FACS, CWS COMPLETE CBC W/AUTO DIFF WBC Completed 10/18/16 LIVIA GUO MD, FACS, CWS TISSUE EXAM BY PATHOLOGIST Completed 10/18/16 LIVIA GUO MD FACS, CWS [id number] ITEM OR SERVICE Completed 10/18/16 LIVIA GUO MD FACS, CWS [id number] ITEM OR SERVICE Completed 10/18/16 LIVIA GUO MD FACS, CWS [id number] ITEM OR SERVICE Completed 10/18/16 LIVIA GUO MD FACS, CWS [id number] ITEM OR SERVICE Completed 10/18/16 LIVIA GUO MD FACS, CWS [id number] ITEM OR SERVICE Completed 10/18/16 LIVIA GUO MD FACS, CWS [id number] ITEM OR SERVICE Completed 10/18/16 LIVIA GUO MD FACS, CWS [id number] ITEM OR SERVICE Completed 10/18/16 LIVIA GUO MD FACS, CWS [id number] ITEM OR SERVICE Completed 10/18/16 LIVIA GUO MD FACS, CWS [id number] ITEM OR SERVICE Completed 10/18/16 LIVIA GUO MD FACS, CWS [id number] ITEM OR SERVICE Completed 10/18/16 LIVIA GUO MD FACS, CWS [id number] ITEM OR SERVICE Completed 10/18/16 LIVIA GUO MD FACS, CWS [id number] ITEM OR SERVICE Completed 10/18/16 LIVIA GOU MD FACS, CWS [id number] ITEM OR SERVICE Completed 10/18/16 LIVIA GUO MD FACS, CWS [id number] ITEM OR SERVICE Completed 10/18/16 LIVIA GUO MD, FACS, CWS [id number]"INJECTION, DEXAMETHASONE SODIUM PHOSPHATE, 1MG" Completed 10/18/16 LIVIA GUO MD, FACS, CWS [id number]"INJECTION, ERTAPENEM SODIUM, 500 MG" Completed 10/18/16 LIVIA GUO MD, FACS, CWS [id number]"INJECTION, ONDANSETRON HYDROCHLORIDE, PER 1 MG" Completed 10/18/16 LIVIA GUO MD, FACS, CWS [id number]"INJECTION, NEOSTIGMINE METHYLSULFATE, UP TO 0.5 MG" Completed LIVIA GUO MD, FACS, CWS [id number]"INJECTION, FENTANYL CITRATE, 0.1 MG" Completed 10/18/16 LIVIA GUO MD, FACS, CWS [id number]"INFUSION, NORMAL SALINE SOLUTION , 250 CC" Completed 10/18/16 LIVIA GUO MD, FACS, CWS [id number]"RINGERS LACTATE INFUSION, UP TO 1000 CC" Completed 10/18/16 LIVIA GUO MD, FACS, CWS [id number]"RINGERS LACTATE INFUSION, UP TO 1000 CC" Completed 10/18/16 LIVIA GUO MD, FACS, CWS [id number]"RINGERS LACTATE INFUSION, UP TO 1000 CC" Completed 10/18/16 LIVIA GUO MD, FACS, CWS [id number] ADDITION TO CODE FOR PRIMARY PROCEDURE) Completed 10/18/16 Encounters Encounter Location Arrival/Admit Date Discharge/Depart Date Attending Provider Departed Emergency Room [facility] 10/31/16 10:40am 10/31/16 1: 35pm TRINITY MAYA DO Departed Surgical Day Care [facility] 10/18/16 2:13pm 10/19/16 5: 50pm LIVIA GUO FACS, MD Departed Emergency Room [facility] 10/16/16 12:13pm 10/16/16 3: 36pm TRINITY MAYA DO Registered Clinic [facility] 10/13/16 2:47pm VINICIUS CORNELIUS APRN Recent Diagnosis
--- OUTSIDE RECORDS SUMMARY | 2017-01-21 14:09 | XMS REPORT | Continuity of Care Document ---
Author Author [facility] Organization [facility] Address Unknown Phone Unavailable Allergies Medications Problems Procedures Results Encounters ACCT No. Visit Date/Time Discharge Status Pt. Type Provider Facility Loc./Unit Complaint [id number] 01/17/2014 19:28:00 01/17/2014 23 :59:59 CLS Outpatient
--- OUTSIDE RECORDS SUMMARY | 2017-01-21 14:10 | XMS REPORT | Referral Summary ---
Author Author [facility], [facility] Organization [facility], [facility] Address Unknown Phone Unavailable Care Team Providers Care Bull Wheel Worker Name Role Phone Abby Singh Primary Care Physician [phone] Encounter VC Date(s): 12/30/16 - 12/30/16 [facility], [address] [place] [id number]- Discharge Diagnosis: Rib pain on right side Discharge Disposition: 01-Home or Self Care Attending Physician: Glen Stone PA-C Admitting Physician: Glen Stone PA-C Vital Signs Most recent to 1 oldest [Reference Range]: Temperature Tympanic 36.9 degC [36.6-38.1 degC] (12/30/16 1:19 PM) Peripheral Pulse 63 bpm Rate [60-100 bpm] (12/30/16 1:19 PM) Blood Pressure 122/82 mmHg [90-140/60-90 mmHg] (12/30/16 1:19 PM) SpO2 97 % (12/30/16 1:19 PM) Problem List Condition Effective Dates Status [...] FOR 5 DAYS., # 25 caps, eRx: [facility] #[id number], TAKE ONE CAPSULE 5 TIMES DAILY FOR 5 DAYS. Start Date: 10/10/16 Status: Ordered Aleve 220 mg, Oral, q12hr, 0 Refill(s) Start Date: 04/17/14 Status: Ordered ALPRAZolam 0.25 mg oral tablet 0.25 mg 1 tabs, Oral, BID, MUST LAST 30 DAYS may refill 12/16/2016 Sandeep GARIBAY, # 60 tabs, 0 Refill(s) Start Date: 12/15/16 Status: Ordered Daily Multi 1 tabs, Oral, Daily, 0 Refill(s) Start Date: 04/17/14 Status: Ordered furosemide 80 mg oral tablet See Instructions, TAKE ONE-HALF TABLET BY MOUTH TWO TIMES A DAY, # 90 tabs, eRx : [facility] #[id number] Start Date: 11/02/16 Status: Ordered Glucosamine & Chondroitin with MSM 1 tabs, Oral, Daily, 0 Refill(s) Start Date: 04/17/14 Status: Ordered Klor-Con M20 oral tablet, extended release See Instructions, TAKE ONE TABLET BY MOUTH TWICE A DAY, # 60 tabs, 3 Refill(s), eRx: [facility] #[id number] Start Date: 12/21/16 Status: Ordered levothyroxine 125 mcg (0.125 mg) oral tablet See Instructions, TAKE ONE TABLET BY MOUTH DAILY, # 90 tabs, eRx: [facility] #[id number] Start Date: 12/07/16 Status: Ordered lidocaine 5% topical film 1 patches, Topical, Daily, remove patches after 12 hours, # 30 patches, 0 Refill (s), Pharmacy: [facility] #[id number] Start Date: 12/30/16 Stop Date: 01/29/17 Status: Ordered magnesium oxide 500 mg, Oral, Daily, 0 Refill(s) Start Date: 04/17/14 Status: Ordered Nasonex 50 mcg/inh nasal spray 2 sprays, Nasal, BID, # 17 g, 0 Refill(s), samples given to patient (Rx) Start Date: 07/04/16 Status: Ordered propranolol 40 mg oral tablet See Instructions, TAKE ONE TABLET BY MOUTH TWICE A DAY, # 60 tabs, eRx: [facility] #[id number] Start Date: 12/05/16 Status: Ordered SEROquel 25 mg oral tablet See Instructions, TAKE ONE TABLET BY MOUTH EVERY NIGHT AT BEDTIME NEEDED FOR INSOMNIA, # 60 tabs, eRx: [facility] #[id number], TAKE ONE TABLET BY MOUTH EVERY NIGHT AT BEDTIME NEEDED FOR INSOMNIA Start Date: 01/18/16 Status: Ordered spironolactone 25 mg oral tablet See Instructions, TAKE ONE TABLET BY MOUTH DAILY, # 90 tabs, eRx: [facility] #[id number] Start Date: 10/24/16 Status: Ordered traMADol 50 [...] 20'S Assessment and Plan Extracted from: Title: right rib pain Author: Glen Stone PA-C Date: 12/30/16 Assessment/Plan Rib pain on right side The patient has muscle sprain to the right elevated herlatissimus dorsi or trapezius area. She does have sensation intact. Continue with the tramadol for pain, I initiated as lower lidocaine patches if patient's insurance will not cover it I recommended purchasing one or 2 to see if it was helpful he can apply it for 12 hours on 12 hours off. Do not use heat or ice while the patches in place and do not apply over other rubs or creams. FU with PCP if not improving, worsening symptoms, or as needed. Questions were answered. Patient verbalized understanding. Patient left in stable condition.
[2017-01-21 14:18] VITALS: Ht 165.1 cm; Wt 83.1 kg
--- NOTE | 2017-01-21 15:53 | ERPDOC ---
Departure Disposition Decision Date: Jan 21, 2017 Disposition Decision Time: 16:50 Disposition: 01 DISCHARGED HOME, SELF-CARE Impression Impression Impression: Primary Impression: UTI (urinary tract infection) Additional Impression: Abdominal pain Severity: Moderate Condition: Stable Seen By: Physician only Referrals: ARMAND SHOEMAKER MD (Family) Patient Instructions: Abdominal Pain (ED) Problems/Meds/Labs Reviewed?: Yes Medications reviewed and manag: Yes Additional Instructions: You were given a shot of Rocephin, an antibiotic. You are also to take Cipro 500 mg twice daily for 5 days. Pyridium 200mg, one tablet 3 times daily as needed for pain for the next 2 days. Follow up care ordered?: Yes Mental Status: Alert, Oriented Scripts Phenazopyridine HCl (Pyridium) 200 Mg Tablet 200 MG PO TID for PAIN, #9 TAB Prov: RENETTA JUNIOR MD 01/21/17 Ciprofloxacin HCl (Cipro) 500 Mg Tablet 500 MG PO Q12HR, #10 TAB Prov: RENETTA JUNIOR MD 01/21/17 HPI - Abdominal Pain General Chief Complaint: Abdominal Pain Stated Complaint: STOMACH PAIN INTO LOWER/MID BACK Time Seen by Provider: 15:27 HPI - Abdominal Pain Initial Comments 66-year-old female presents with abdominal pain times approximately 3 months. Patient had her gallbladder removed about 3 months ago (in October) and has had intermittent pain since about that time. She has had some nausea, no actual vomiting. No fevers or chills. Pain seems to be mid epigastric and then lower pelvic and radiating back both sides towards the flank from there. Not had any abdominal trauma. Has had previous adhesions which were reduced many years ago. She keeps think she should go see the doctor, but keeps putting it off. Allergies: Coded Allergies: triamcinolone acetonide (Verified Allergy, Intermediate, FLUSHED AND RED, 10/18/16) ibuprofen (Verified Allergy, Mild, RED FACE, HOT, 10/18/16) Sulfa (Sulfonamide Antibiotics) (Verified Allergy, Unknown, HIVES, ) acetaminophen (Verified Adverse Reaction, Unknown, GETS FLUSHED, 10/18/16) hydrocodone bit (Verified Adverse Reaction, Unknown, GETS FLUSHED, ) Past History Past Medical History Metabolic: hypertension, hypothyroidism ENMT: allergies GI: constipation Neurological: fibromyalgia Musculoskeletal: osteoarthritis Psychological: anxiety Surgical History General: appendix, colonoscopy, other, tonsils Reproductive/: , hysterectomy Joint: knee, shoulder Family History Family PMH: FOUND: hypertension Vaccines Hx Influenza Vaccination: Yes (AUG 2016) Hx Pneumococcal Vaccination: Yes (AUG 2016, HIGH DOSE) Social History Does patient use chewing tobac: No Second Hand Exposure: No Substance Use Type: does not use Alcohol Intake: none Record Review Pertinent history updated: Yes Review of Systems GI Upper Abdomen: see HPI Lower Abdomen: see HPI All other Systems All Other Systems: Reviewed and Negative Physical Exam General General Nourishment: well nourished, well developed, appears stated age, no acute distress Vitals and Pain First Documented Vital Signs Date Time Temp Pulse Resp B/P Pulse Ox O2 Delivery O2 Flow Rate FiO2 01/21/17 14:18 98.2 64 14 151/75 98 Room Air Weight: Kilograms: 83.100 Height (feet): 5 Height (inches): 5.00 Triage Pain Scale: Normal Exams: Head: Normocephalic w/o trauma Neck: Full range of motion, without adenopathy, JVD, bruits or thyromegaly Chest/Resp: Clear all reece, with good airflow, and symmetry bilaterally CV: Regular rate and rhythm, without murmur or gallop, Pulses 2+ all extremities, capillary refill, <2 seconds all ext., no pedal edema noted Neurologic: Patient is alert, and oriented, cranial nerves, motor/sensory/ cerebellar, exams w/o gross deficits, to observation Psychiatric: Patient exhibits, appropriate attention, emotion and affect Abdomen (brief) Abdominal Brief: FOUND: bowel normo active x4, soft Comments Mild tender midepigastric and suprapubic. Somewhat distended. Differential Diagnoses Considering: Appendicitis, Biliary Colic, Bowel Obstruction, Constipation, Diverticulitis, GI Bleed, IBS, Ileus, Pancreatitis, Ulcer, Ulcerative Colitis, Volvulus Progress Results/Orders Orders Procedure Category Date Status Time Ct Abd/Pelvis W/O CT 01/21/17 Logged Contrast 15:49 Cbc W/Auto LAB 01/21/17 Complete Diff-Reflex Manual 15:55 Cmp - Comprehensive LAB 01/21/17 Complete Metabolic 15:55 Lipase LAB 01/21/17 Complete 15:55 UA, LAB 01/21/17 In Process Dip&Micro(Complete) & 16:14 Lab Results Laboratory Tests Test 01/21/17 16:14 01/21/17 16:16 Urine Collection Type Voided-not cc-midstr Urine Color Yellow Urine Turbidity Sl cloudy Urine pH 6.0 Urine Specific [place] 1.010 Urine Protein Negative Urine Glucose (UA) Negative Urine Ketones Negative Urine Blood Trace-intact Urine Nitrite Negative Urine Bilirubin Negative Urine Urobilinogen 0.2EU/DL Urine Leukocyte Esterase 3+ Urine RBC Pending Urine WBC Pending Urine Bacteria Pending White Blood Count 9.1T/MM3 Red Blood Count 5.04M/MM3 Hemoglobin 15.2GM/DL Hematocrit 45.6% Mean Corpuscular Volume 90.5UM3 Mean Corpuscular Hemoglobin 30.2UUG Mean Corpuscular Hemoglobin Concent 33.3GM/DL RDW Standard Deviation 42.3FL Platelet Count 205T/MM3 Mean Platelet Volume 11.6UM3 Immature Granulocyte % (Auto) 0.1% Neutrophils (%) (Auto) 48.5% Lymphocytes (%) (Auto) 35.6% Monocytes (%) (Auto) 11.0% Eosinophils (%) (Auto) 4.5% Basophils (%) (Auto) 0.3% Absolute Immature Granulocyte (auto 0.01T/MM3 Absolute Neutrophils (auto) 4.4T/MM3 Absolute Lymphocytes (auto) 3.2T/MM3 Absolute Monocytes (auto) 1.0T/MM3 Absolute Eosinophils (auto) 0.4T/MM3 Absolute Basophils (auto) 0.0T/MM3 Turbidity < 20 Sodium Level 144MEQ/L Potassium Level 3.9MEQ/L Chloride Level 99MEQ/L Carbon Dioxide Level 31MEQ/L Anion Gap 14MEQ/L Blood Urea Nitrogen 17.0MG/DL Creatinine 0.9MG/DL Glomerular Filtration Rate Calc 63 BUN/Creatinine Ratio 19RATIO Glucose Level 104MG/DL Calculated Osmolality 279MOSM/KG Calcium Level 10.2MG/DL Total Bilirubin 0.70MG/DL Icterus Index < 2 Aspartate Amino Transf (AST/SGOT) 47U/L Alanine Aminotransferase (ALT/SGPT) 43U/L Alkaline Phosphatase 155U/L Total Protein 8.9G/DL Albumin 4.6G/DL Globulin 4.3G/DL Albumin/Globulin Ratio 1.1RATIO Lipase 176U/L Chemistry Specimen Hemolysis < 15 Progress Progress White count is appropriate, CMP is appropriate, UA shows leukocyte esterase 3+. CT is negative of abdomen. Patient's symptoms are appropriate for UTI, acutely. She'll be given Rocephin 1 g IM, then Cipro 500 mg twice daily for 5 days. Recommended she follow up with general surgery regarding potential for adhesions as part of the cause of her pain. RENETTA JUNIOR MD Jan 21, 2017 15:53
--- OUTSIDE RECORDS SUMMARY | 2017-01-21 16:00 | XMS REPORT | Continuity of Care Document ---
Author Author [facility] Organization [facility] Address Unknown Phone Unavailable Support Name Relationship Address Phone ALEXANDER RAFAEL CHAVEZ Caregiver [facility] [address] [place] [address] JENNIFER DOMINGO MD Caregiver [address] [place] [address] [place] [phone] NAGI WILLS Next Of Kin [address] [place] [address] Insurance Providers Payer Name Policy Number Subscriber Name Relationship Medicare [id number] Lauryn Barbour 18 Self Medicaid [id number] Lauryn Barbour 18 Self Advance Directives Directive [...] Spironolactone 1 Tab PO DAILY 05/02/10 Active [place]-3 Fatty Acids 1 Cap PO DAILY 03/17/10 05/02/10 Discontinued Flaxseed Oil 1 Cap PO DAILY 05/26/10 Active Pyridoxine Hcl 1 Tab PO DAILY 04/07/09 03/16/10 Discontinued Ergocalciferol 1 Tab PO DAILY 05/26/10 05/27/13 Discontinued Tramadol Hcl 50 Mg PO NEEDED 03/17/10 05/02/10 Discontinued Gluc Uriarte/Chondro Uriarte A/Vit C/Mn 1 Cap PO THREE TIMES A DAY 05/26/10 Active Vitamin F06-Wnfttsyhd Factor 1 Cap PO DAILY 05/26/10 05/27/13 [...] F (96.8 - 99.1) Temperature (Calculated Celsius) 36.49404 degrees C (36.0 - 37.3) Pulse Rate [...] 16, 2014 10:14am LAB RESULTS - SCANNED [id number] - Lipase December 30, 2014 1:41pm 195 [...] 30, 2014 1:41pm 11.6 % H 0-9.0 TE-Nbd-G-Type Natriuretic Peptide August 24, 2013 10:16am 86 [...] Has specimen been collected/obtained? Y Urine Specific [place] December 30, 2014 2:30pm <=1.005 L - [...] Pseudomonas Aeruginosa Name: LAURYN BARBOUR Unit #: [id number] : 1950 Sex: F Loc / Svc: ED DOS: 12/30/14 Signed Report #: [id number] DIAGNOSTIC IMAGING REPORT TYPE OF EXAM: KUB [...] Provider(s) COMP SCREEN MAMMOGRAM ADD-ON completed 11/24/14 [id number]"SCREENING MAMMOGRAPHY, PRODUCING DIRECT DIGITAL IMAGE completed EXTREMITY STUDY completed 10/17/14 Encounters Encounter Location Date/Time Departed Emergency Room [facility] 12/30/14 12:52pm Registered Clinic [facility] 11/24/14 11:12am Registered Clinic [facility] 10/17/14 11:05am Recent Diagnosis
--- OUTSIDE RECORDS SUMMARY | 2017-01-21 16:01 | XMS REPORT | Continuity of Care Document ---
Author Author [facility] Organization [facility] Address Unknown Phone Unavailable Allergies Medications Problems Procedures Results Encounters ACCT No. Visit Date/Time Discharge Status Pt. Type Provider Facility Loc./Unit Complaint [id number] 01/17/2014 19:28:00 01/17/2014 23 :59:59 CLS Outpatient
--- NOTE | 2017-01-21 16:14 | NUR ---
LAB IN ROOM
[2017-01-21 16:28] LABS: BLOOD, URINE TRACE-INTACT (NEGATIVE); COLOR,URINE YELLOW (YELLOW); LEUKOCYTE ESTERASE ,URINE 3+ (NEGATIVE); NITRITE,URINE NEGATIVE (NEGATIVE); UROBILINOGEN,URINE 0.2 EU/DL (NORMAL)
[2017-01-21 16:35] LABS: BASOPHILS % (AUTO) 0.3 % (0-2); EOSINOPHILS # (AUTO) 0.4 T/MM3 (0-0.5); EOSINOPHILS % (AUTO) 4.5 % (0-4); HCT - HEMATOCRIT 45.6 % (36-46); HGB - HEMOGLOBIN 15.2 GM/DL (12-16); IMMATURE GRANULOCYTE # (AUTO) 0.01 T/MM3 (0.00-0.03); IMMATURE GRANULOCYTE % (AUTO) 0.1 % (0.0-0.5); LYMPHOCYTES # (AUTO) 3.2 T/MM3 (1-4.8); LYMPHOCYTES % (AUTO) 35.6 % (23-45); MEAN CORPUSCULAR HGB 30.2 UUG (26-34); MEAN CORPUSCULAR HGB CONC(MCHC 33.3 GM/DL (31-37); MEAN CORPUSCULAR VOLUME 90.5 UM3 (80-100); MEAN PLATELET VOLUME 11.6 UM3 (9.4-12.4); NEUTROPHILS #(AUTO)-ABSOLUTE 4.4 T/MM3 (1.8-7.7); NEUTROPHILS % (AUTO) 48.5 % (33-66); RED BLOOD COUNT 5.04 M/MM3 (4.00-5.20); WBC - WHITE BLOOD COUNT 9.1 T/MM3 (4.5-11.0)
[2017-01-21 16:38] LABS: ALBUMIN 4.6 G/DL (3.5-5.0); ALBUMIN/GLOBULIN RATIO 1.1 RATIO (1.1-2.2); ALKALINE PHOSPHATASE 155 U/L (38-126); ALT (SGPT) 43 U/L (9-52); ANION GAP 14 MEQ/L (5-15); AST (SGOT) 47 U/L (14-36); BUN/CREATININE RATIO 19 RATIO (6-26); CALCIUM 10.2 MG/DL (8.4-10.2); CHLORIDE 99 MEQ/L (98-107); CO2 - CARBON DIOXIDE 31 MEQ/L (22-30); CREATININE 0.9 MG/DL (0.7-1.2); GLOMERULAR FILTRATION RATE 63; GLUCOSE 104 MG/DL (65-110); LIPASE 176 U/L (23-300); POTASSIUM 3.9 MEQ/L (3.6-5); SODIUM 144 MEQ/L (134-144); TOTAL PROTEIN 8.9 G/DL (6.3-8.2)
[2017-01-21 16:53] LABS: SQUAMOUS EPITHELIAL CELL,UR 0-5; WBC,URINE 20-30 /HPF (0-5)
[2017-01-21] MEDS ORDERED: PHEN-779 PO (16:53)
[2017-01-21] MEDS ORDERED: CIPR-212 PO (16:53)
[2017-01-21 16:54] LABS: BACTERIA,URINE 1+ (NEGATIVE); RBC,URINE 0-1 /HPF (0-3); WBC CLUMPS,URINE MODERATE
[2017-01-21] MEDS ORDERED: CEFTRIAXONE 1 GRAM INJECTION IM ONE (17:00)
[2017-01-21 17:08] VITALS: BP 178/75; PULSE 62; RESP 14; TEMP 98.2; O2SAT 98
[2017-01-21] MEDS ORDERED: LIDOCAINE 1% (10mg/ml) 2ml SDV ID ONE (18:00)
--- NOTE | 2017-01-22 13:50 | DI ---
Indication: ITS.REASON: postop abdominal pain PROCEDURE: CT ABD/PELVIS W/O CONTRAST: Encounter: Initial Comparison: None Technique: Axial CT images were performed through the abdomen and pelvis without intravenous contrast. Coronal and sagittal two-dimensional reformats. Automated Exposure Control and Iterative Reconstruction dose reducing techniques were utilized. Findings: The lung bases are grossly clear. The unenhanced contours of the liver show no acute findings. Gallbladder is surgically absent. The spleen, pancreas and adrenal glands are within normal limits. There is suggestion of some mild inflammation surrounding the second portion of the duodenum. The kidneys are unremarkable. No abdominal or pelvic lymphadenopathy. The bladder is thin walled. Uterus is absent. No evidence of a bowel obstruction. The appendix is normal. Bone windows show demineralization and degenerative change in the spine. Impression: Suggestion of mild inflammatory change in the region of the second portion of the duodenum could represent a duodenitis or possibly duodenal ulcer disease. Upper endoscopy may be helpful for further evaluation. There is a preliminary report by [employer]. The possible inflammatory changes in the duodenum were not described on the preliminary report. .
== END 2017-01-21 17:08 | disposition home or self-care (01) ==
LOC: ED 14:02
DX: N39.0 Urinary tract infection, site not specified (principal)
CPT/HCPCS: 36415; 74176; 80053; 81001; 83690; 85025; 96372; 99284; J0696

== ENCOUNTER 2018-04-11 13:38 | Observation (INO) ==
--- NOTE | 2018-04-11 14:30 | Emergency Department Report ---
General Adult HPI - General Chief complaint: Medical Emergency Stated complaint: choking episode Time Seen by Provider: 04/11/18 14:03 Source: patient Mode of arrival: EMS Limitations: no limitations - History of Present Illness HPI narrative: Pt was eating a peanut butter sandwich about 1315 when she had a piece lodge in her throat and she was unable to clear it. Pt called EMS. By EMS arrival pt was cyanotic and unresponsive in a chair. When guiding pt to floor EMS noted she was able to take a deep breath. EMS was able to visualize and remove the food bolus. PT initial SpO2 was in the 80s. Supplemental oxygen provided. Pt regained consciousness and has been verbal appropriate ever since. Pt denies any current pain, discomfort, cough, chest pain or difficulty breathing. Onset (ago): minute(s) Consistency: now resolved - Related Data Home Medications Medication Instructions Recorded Confirmed Potassium Chloride [K-DUR 20 mEq 20 meq PO DAILY #0 02/25/16 04/11/18 Tablet] Cyanocobalamin (Vitamin B-12) 1,000 mcg PO DAILY 07/27/17 04/11/18 [Vitamin B-12] Levothyroxine Sodium 125 mcg PO ACB 07/27/17 04/11/18 Multivitamin [Multivitamins] 1 cap PO DAILY 07/27/17 04/11/18 Propranolol HCl 40 mg PO BID 07/27/17 04/11/18 Spironolactone [Aldactone 25 mg] 25 mg PO DAILY 07/27/17 04/11/18 ALPRAZolam [Xanax 0.25 mg] 0.25 mg PO BID PRN 12/02/17 04/11/18 Furosemide [Lasix] 80 mg PO DAILY 12/02/17 04/11/18 Calcium Carb/Mag Ox/Zinc Gluc 1 tab PO DAILY 12/23/17 04/11/18 [Fjxsypq-Tkpythmjs-Htoa Tablet] Quetiapine [Seroquel] 12.5 mg PO HS PRN 12/23/17 04/11/18 cholecalciferol (vitamin D3) 1 tab PO DAILY 12/26/17 04/11/18 flaxseed oil 1,000 mg capsule 1,000 mg PO DAILY 12/26/17 04/11/18 Tramadol [Ultram] 25 mg PO PRN PRN 04/11/18 04/11/18 Previous Rx's Medication Instructions Recorded Amoxicillin/Potassium Clav 875 mg PO BIDWM #12 tab 04/12/18 [Amox-Clav 875-125 mg Tablet] Allergies Allergy/AdvReac Type Severity Reaction Status Date / Time triamcinolone Allergy Intermediate Redness of Verified 04/11/18 13:59 Skin ibuprofen Allergy Mild RED FACE, Verified 04/11/18 13:59 HOT Sulfa (Sulfonamide Allergy Unknown HIVES Verified 04/11/18 13:59 Antibiotics) acetaminophen AdvReac Unknown GETS Verified 04/11/18 13:59 FLUSHED hydrocodone AdvReac Flushing Verified 04/11/18 13:59 Review of Systems All systems: reviewed and negative except as stated Constitutional: Reports: as per HPI Cardiovascular: Reports: as per HPI Respiratory: Reports: as per HPI Gastrointestinal: Reports: as per HPI Neurological: Reports: as per HPI PFS Patient Stated Medical History Hearing Loss Yes: tinitis Other HEENT Yes: chronic dry eyes Cardiac Arrhythmia Yes: PALPITATIONS Other Cardiology Yes: chronic edema lower legs Sleep Apnea No Gastroesophageal Reflux Yes Disease Hx Urinary Tract Infection Yes: FREQUENT Osteoarthritis Yes Other Musculoskeletal Yes: FIBROMYALGIA,PLANTAR FASCIITIS,LEG EDEMA Clinic Medical History (Last Reviewed 02/20/18 @ 11:00 by Trinity Burkett MD) Hypertriglyceridemia (Chronic Medical) IBS (irritable bowel syndrome) (Chronic Medical) Panic disorder (Chronic Medical) Hepatitis (Chronic Medical) Fibromyalgia (Chronic Medical) Sjogren's disease (Chronic Medical) Rheumatic fever (Resolved Medical) x3 in childhood Thyroid disease (Chronic Medical) Osteoarthritis (Chronic Medical) Rheumatoid arthritis (Chronic Medical) Chronic headaches (Chronic Medical) Surgical History: -Cholecystectomy 10/21. -Total Abdominal Hysterectomy with Bilateral Salpingo-Oophorectomy with incidental appy - 1990, Vertebroplasty . -Right Cataract removal. -Right Retinal detachment repair - 2007. - Section - 1968. -EGD. -Sentinel Teeth Extraction. -Lt Shoulder Scope x 2. -Lt Knee Scope - 07/25/11 Family History: Family History (Last Reviewed 02/20/18 @ 11:00 by Trinity Burkett MD) Mother Arthritis Heart failure Father Heart failure Brother Heart failure Unknown Diabetes Cancer - Social History Smoking status: Never smoker second hand exposure: No Substance use type: does not use Alcohol intake: never Alcohol intake frequency: does not drink Household members: none Current occupational status: employed Physical Exam - Limitations Limitations: no limitations - General General appearance: alert - Normal Exams: Head:: Normocephalic without trauma Eyes:: Pupils are PERRLA w/ EOMI ENMT:: No facial trauma, nasal exudates, pharyngeal erythema, or exudates are noted Neck:: Full range of motion, without adenopathy Chest/Respirations:: Clear all reece, with good airflow, and symmetry bilaterally Cardiovascular:: Regular rate and rhythm, without murmur or gallop Abdomen:: Bowel sounds positive, soft, non-tender, non-distended Musculoskeletal:: No tenderness, or deformity noted, good range of motion, all extremities Integumentary:: No rashes Neurological:: Patient is alert, and oriented, cranial nerves, motor/sensory/ cerebellar, exams w/o gross deficits, to observation Psychiatric:: Patient exhibits, appropriate attention, emotion and affect Course Vital Signs Temperature 97.7 F 04/11/18 13:37 Pulse Rate 74 04/11/18 13:37 Respiratory Rate 20 04/11/18 13:37 Blood Pressure 120/58 04/11/18 13:37 Pulse Oximetry 94 04/11/18 13:37 Temperature 97.7 F 04/11/18 13:37 Pulse Rate 74 04/11/18 13:37 Respiratory Rate 20 04/11/18 13:37 Blood Pressure 120/58 04/11/18 13:37 Pulse Oximetry 94 04/11/18 13:37 Medical Decision Making - [facility] Narrative Medical decision making narrative: X ray read per Dr Pope reveals some RLL "haziness" possibly related to edema or a developing pneumonia. Pt provided antibiotic. Unable to titrate pt from supplemental O2. Hospitalist notified for admission and will accept. Findings and plan discussed with pt who voices understanding. - Differential Diagnosis aspiration, foreign body, aspiration pneumonia - Lab Data Result diagrams: 04/12/18 01:03 04/12/18 01:03 - Radiology Data Radiology results reviewed: Yes: I reviewed the patient's radiology results. Read per Dr Pope Disposition Clinical Impression: Choking due to food (regurgitated) Qualifiers: Encounter type: initial encounter Qualified Code(s): T17.320A - Food in larynx causing asphyxiation, initial encounter Disposition: 02 To [facility] Condition: Improved - Seen By: midlevel
--- NOTE | 2018-04-11 14:40 | XRay Report ---
INDICATION: Pt choked on food bolus, had LOC, ROSR PROCEDURE: CHEST 2-VIEWS UPRIGHT (PA & LAT) Encounter: Initial COMPARISON: December 23, 2017 FINDINGS: New diffuse mild hazy opacity in the right lung with interstitial prominence. Left lung appears clear. No pleural effusion or pneumothorax. Heart size and mediastinal contours are stable. Pulmonary vascularity appears mildly prominent. Impression: Hazy right lung opacities and interstitial prominence could relate to edema or developing pneumonia/aspiration. .
[2018-04-11] MEDS ORDERED: SALINE FLUSH 10ml SYRINGE IVF PRN (14:59)
[2018-04-11] MEDS ORDERED: FUROSEMIDE 40 MG/4 ML INJECTION IVP ONE (16:06)
[2018-04-11] MEDS ORDERED: AZITHROMYCIN IV 500 MG in NS 250ml 250 ML IV ONE (16:12)
[2018-04-11 18:24] VITALS: BMI 29.5
--- NOTE | 2018-04-11 19:38 | History & Physical Report ---
History of Present Illness Date: 04/11/18 HPI: reports she was eating bread with peanut butter this afternoon when she started choking on it. She called EMS and they came within 5 minutes and were able to suction out the food particle. Pt denies any trouble with swallowing before or any previous choking episodes. Pt currently reports feeling much better, she's just shaken up since she thought she might . Pt is sore around her epigastric area but denies any cp or sob. Denies any cough or f/c. Denies any previous pna episodes. Pt was requiring O2 in ER so pt was admitted. Pt denies any home O2 use. Review of Systems Review of systems: 10 point ROS negative other than what is noted above. Past Medical History Medical History: Medical History (Last Reviewed 02/20/18 @ 11:00 by Trinity Burkett MD) Hypertriglyceridemia (Chronic) IBS (irritable bowel syndrome) (Chronic) Panic disorder (Chronic) Hepatitis (Chronic) Fibromyalgia (Chronic) Sjogren's disease (Chronic) Rheumatic fever (Resolved) x3 in childhood Thyroid disease (Chronic) Osteoarthritis (Chronic) Rheumatoid arthritis (Chronic) Chronic headaches (Chronic) Surgical History: -Cholecystectomy 10/21. -Total Abdominal Hysterectomy with Bilateral Salpingo-Oophorectomy with incidental appy - 1990, Vertebroplasty . -Right Cataract removal. -Right Retinal detachment repair - 2007. - Section - 1968. -EGD. -[place] Teeth Extraction. -Lt Shoulder Scope x 2. -Lt Knee Scope - 07/25/11 Family History: Family History (Last Reviewed 02/20/18 @ 11:00 by Trinity Burkett MD) Mother Arthritis Heart failure Father Heart failure Brother Heart failure Unknown Diabetes Cancer Family History: No Significant Family History - Social History Smoking status: Never smoker Medications Home Medications Medication Instructions Recorded Confirmed Type Potassium Chloride [K-DUR 20 mEq 20 meq PO DAILY #0 02/25/16 04/11/18 History Tablet] Cyanocobalamin (Vitamin B-12) 1,000 mcg PO DAILY 07/27/17 04/11/18 History [Vitamin B-12] Levothyroxine Sodium 125 mcg PO ACB 07/27/17 04/11/18 History Multivitamin [Multivitamins] 1 cap PO DAILY 07/27/17 04/11/18 History Propranolol HCl 40 mg PO BID 07/27/17 04/11/18 History Spironolactone [Aldactone 25 mg] 25 mg PO DAILY 07/27/17 04/11/18 History ALPRAZolam [Xanax 0.25 mg] 0.25 mg PO BID PRN 12/02/17 04/11/18 History Furosemide [Lasix] 80 mg PO DAILY 12/02/17 04/11/18 History Calcium Carb/Mag Ox/Zinc Gluc 1 tab PO DAILY 12/23/17 04/11/18 History [Afqhxfe-Drkodzzmd-Ohcz Tablet] Quetiapine [Seroquel] 12.5 mg PO HS PRN 12/23/17 04/11/18 History cholecalciferol (vitamin D3) 1 tab PO DAILY 12/26/17 04/11/18 History flaxseed oil 1,000 mg capsule 1,000 mg PO DAILY 12/26/17 04/11/18 History Tramadol [Ultram] 25 mg PO PRN PRN 04/11/18 04/11/18 History Allergies Allergy/AdvReac Type Severity Reaction Status Date / Time triamcinolone Allergy Intermediate Redness of Verified 04/11/18 13:59 Skin ibuprofen Allergy Mild RED FACE, Verified 04/11/18 13:59 HOT Sulfa (Sulfonamide Allergy Unknown HIVES Verified 04/11/18 13:59 Antibiotics) acetaminophen AdvReac Unknown GETS Verified 04/11/18 13:59 FLUSHED hydrocodone AdvReac Flushing Verified 04/11/18 13:59 Exam Vital Signs: Temperature 96.7 F L 04/11/18 18:22 Pulse Rate 62 04/11/18 18:22 Respiratory Rate 17 04/11/18 18:22 Blood Pressure 130/87 04/11/18 18:22 Pulse Oximetry 99 04/11/18 18:22 Height/Weight/BMI: Height 5 ft 5 in Weight 80.5 kg Body Mass Index 29.5 - Constitutional Present: no acute distress - Routine HEENT Exam Head: Present: normocephalic, atraumatic Eye: Present: EOMI ENT: Present: mucous membranes moist - Routine Respiratory Exam Present: CTA bilaterally. Absent: wheezes, crackles - Routine Cardiovascular Exam Present: RRR, no murmur - Routine Abdominal Exam Present: soft, non distended, non tender - Routine Extremities Exam Present: no edema. Absent: cyanosis, clubbing - Routine Skin Exam Present: intact, dry. Absent: erythema - Routine Neurological Exam Present: alert, oriented X3 Results - Labs CBC & Chem 7: 04/11/18 15:25 04/11/18 15:25 Assessment and Plan Assessment and Plan: Aspiration PNA -CXR shows right sided pna, likely from aspiration -Will do Augmentin and plan for 7 day tx since it is uncomplicated -No noted swallowing difficulties previously, will do bedside swallow before starting diet Mild Transaminitis -Will get hep panel and liver sono Anxiety/Depression -Cont. home xanax, seroquel Palpitations -Cont. home propranolol Hypothyroid -Cont. home levo Chronic LE edema -Cont. home lasix and spironolactone and K supplements Fibromyalgia/chronic pain -Cont. home tramadol Ppx -SCDs - Physician Narrative Narrative: Date: 04/11/18 Time: 1929 Hospital Course Summary Disclaimer: The visit summary below is not to be considered part of the above Progress Note.
[2018-04-11] MEDS ORDERED: TRAMADOL 50 MG TABLET PO PRN (19:39)
[2018-04-11] MEDS ORDERED: QUETIAPINE 25 MG TABLET PO PRN (19:39)
[2018-04-11] MEDS ORDERED: ALPRAZolam 0.25 MG TABLET PO PRN (19:39)
[2018-04-11] MEDS ORDERED: PROPRANOLOL HCL 40 MG PO SCH (21:00)
[2018-04-11] MEDS: AMOX/CLAV 875 MG/125 MG TABLET PO SCH (22:11)
[2018-04-12] MEDS: PROPRANOLOL 20 MG TABLET PO SCH ×2 (00:26→10:03)
[2018-04-12] MEDS ORDERED: LEVOTHYROXINE 125 MCG TABLET PO SCH (06:30)
[2018-04-12 07:47] VITALS: BP 126/64; RESP 12; TEMP 96.9
--- NOTE | 2018-04-12 08:57 | XRay Report ---
INDICATION: aspiration PROCEDURE: CHEST 2-VIEWS UPRIGHT (PA & LAT) Encounter: Initial COMPARISON: April 11, 2018 FINDINGS: Aeration of the right lung has improved. No new or worsening airspace disease. No pneumothorax or pleural effusion. Heart size, pulmonary vascularity and mediastinal contours are stable. Impression: Improving aeration of the right lung. .
[2018-04-12] MEDS ORDERED: SPIRONOLACTONE 25 MG TABLET PO SCH (09:00)
[2018-04-12] MEDS ORDERED: FLAXSEED OIL 1000 MG PO SCH (09:00)
[2018-04-12] MEDS ORDERED: CYANOCOBALAMIN (B-12) 500mcg TABLET PO SCH (09:00)
[2018-04-12] MEDS ORDERED: CALCIUM CARBONATE 500 MG TABLET PO SCH (09:00)
[2018-04-12] MEDS ORDERED: FUROSEMIDE 80 MG TABLET PO SCH (09:00)
[2018-04-12] MEDS ORDERED: MULTI-VITAMIN PLAIN TABLET PO SCH (09:00)
--- NOTE | 2018-04-12 09:21 | Ultrasound Report ---
Indication: transaminitis PROCEDURE: US liver: Encounter: Initial Comparison: None Technique: Grayscale and color Doppler sonographic imaging of the right upper quadrant of the abdomen was performed. Findings: Hepatic parenchyma is sonographically dense without evidence for focal mass. The gallbladder is surgically absent. Both the intra and extrahepatic biliary system are of normal caliber with the common duct measuring 3 mm in dimension. Visualized portions of the head and body of the pancreas are unremarkable. The right kidney is present without collecting system dilatation. The right kidney measures 10.9 cm in length. Impression: Probable hepatic steatosis. .
[2018-04-12] MEDS: AMOX/CLAV 875 MG/125 MG TABLET PO SCH (10:02)
[2018-04-12 10:46] VITALS: PULSE 58; O2SAT 93
--- NOTE | 2018-04-12 14:59 | Discharge Summary ---
Discharge Information Date of admission: 04/11/18 17:39 Anticipated date of discharge: 04/12/18 Attending Physician: Jennifer Sawyer MD Primary care physician: Tunde Shoemaker MD - Discharge Diagnosis (1) Choking due to food (regurgitated) Status: Acute Aspiration pneumonia mild transaminitis anxiety depression palpitations hypothyroid chronic lower ext. edema fibromyalgia/chronic pain - Laboratory Labs: 04/12/18 01:03 04/12/18 01:03 - Radiology Radiology: = = = = = = = = = = = = = = = = = = = = = = = = = = = = = = = = = = = = = = = = = = = = = = = = = = = = = = = = = = = Date of Exam: 04/11/18 PROCEDURE: CHEST 2-VIEWS UPRIGHT (PA & LAT) FINDINGS: New diffuse mild hazy opacity in the right lung with interstitial prominence. Left lung appears clear. No pleural effusion or pneumothorax. Heart size and mediastinal contours are stable. Pulmonary vascularity appears mildly prominent. Impression: Hazy right lung opacities and interstitial prominence could relate to edema or developing pneumonia/aspiration. = = = = = = = = = = = = = = = = = = = = = = = = = = = = = = = = = = = = = = = = = = = = = = = = = = = = = = = = = = = Date of Exam: 04/11/18 PROCEDURE: US liver: Findings: Hepatic parenchyma is sonographically dense without evidence for focal mass. The gallbladder is surgically absent. Both the intra and extrahepatic biliary system are of normal caliber with the common duct measuring 3 mm in dimension. Visualized portions of the head and body of the pancreas are unremarkable. The right kidney is present without collecting system dilatation. The right kidney measures 10.9 cm in length. Impression: Probable hepatic steatosis. History of Present Illness HPI: reports she was eating bread with peanut butter this afternoon when she started choking on it. She called EMS and they came within 5 minutes and were able to suction out the food particle. Pt denies any trouble with swallowing before or any previous choking episodes. Pt currently reports feeling much better, she's just shaken up since she thought she might . Pt is sore around her epigastric area but denies any cp or sob. Denies any cough or f/c. Denies any previous pna episodes. Pt was requiring O2 in ER so pt was admitted. Pt denies any home O2 use. Objective Vital signs: Temperature 96.9 F 04/12/18 07:46 Pulse Rate 58 L 04/12/18 10:42 Respiratory Rate 12 04/12/18 07:46 Blood Pressure 126/64 04/12/18 07:46 Pulse Oximetry 93 04/12/18 10:42 Height/Weight/BMI: Height 1.65 m Weight 82.4 kg Body Mass Index 29.5 - Constitutional Present: no acute distress, well nourished, well developed - Routine HEENT Exam Head: Present: normocephalic Eye: Present: PERRL. Absent: conjunctival icterus, scleral injection - Routine Respiratory Exam Present: CTA bilaterally - Routine Cardiovascular Exam Present: RRR, S1, S2 - Routine Abdominal Exam Present: soft, normoactive bowel sounds, non distended, non tender - Routine Extremities Exam Present: edema (trace) - Routine Musculoskeletal Exam Musculoskeletal: Present: moving extremities well - Routine Skin Exam Present: intact, dry, warm - Routine Neurological Exam Present: alert, oriented X3, CN II-XII intact, moving all extremities, vision grossly intact, hearing grossly intact, normal speech. Absent: sensory deficit , motor deficit, altered mental status, facial asymmetry - Routine Psychiatric Exam Present: normal affect, normal thought process, cooperative Hospital Course This is a general summary of the patient's hospital course. For more details refer to the complete medical record. Hospital course: Lauryn Alvarado is a 68 year old woman who was admitted on 04/11/18 after a choking event that occurred at home, which required emergent treatment by paramedics. She was requiring oxygen when she arrived to the ED. CXR showed right sided pneumonia and she was started on Augmentin. She also had mild elevations in LFTs and liver sono was done, which suggested hepatic steatosis. She was evaluated by speech therapy and was deemed safe to return to regular diets and thin liquids and was educated on swallow precautions. She was able to be weaned off of oxygen by 04/12/18, and felt safe for discharge home. She did not have any dyspnea or additional aspiration episodes overnight. Labs remained stable. She was discharged in stable condition on 04/12/18. Rx for Augmentin provided. Recommend f/u with Dr. Shoemaker in 1 week. Discharge Plan - Discharge Disposition Discharge Date: 04/12/18 Disposition: 01 Discharged Home, Self-Care *Condition: Improved Reason For Visit (Visit label in EMR): Aspiration - Discharge Medications *Discharge Medications: New Amoxicillin/Potassium Clav [Amox-Clav 875-125 mg Tablet] 875 mg PO BIDWM #12 tab Continue Multivitamin [Multivitamins] 1 cap PO DAILY Spironolactone [Aldactone 25 mg] 25 mg PO DAILY Propranolol HCl 40 mg PO BID Levothyroxine Sodium 125 mcg PO ACB ALPRAZolam [Xanax 0.25 mg] 0.25 mg PO BID PRN PRN Reason: Anxiety Furosemide [Lasix] 80 mg PO DAILY Quetiapine [Seroquel] 12.5 mg PO HS PRN PRN Reason: Prn Orders Calcium Carb/Mag Ox/Zinc Gluc [Epfqfri-Ahutuoupa-Dvbd Tablet] 1 tab PO DAILY Tramadol [Ultram] 25 mg PO PRN PRN PRN Reason: Pain Potassium Chloride [K-DUR 20 mEq Tablet] 20 meq PO DAILY #0 Cyanocobalamin (Vitamin B-12) [Vitamin B-12] 1,000 mcg PO DAILY cholecalciferol (vitamin D3) 1 tab PO DAILY No Action flaxseed oil 1,000 mg capsule 1,000 mg PO DAILY - Discharge Packet/Instructions *Diet: Regular diet, thin liquids. Swallow precautions: 1) take small bites. 2 ) alternate liquids and solids *Activity: no restrictions. *Pain Management/Treatment: continue home medications *Wound Care: not applicable Additional Instructions: Your liver enzymes were mildly elevated. Liver ultrasound showed probable mild fatty disease. Follow up with Dr. Shoemaker about liver tests. *Expected Signs/Symptoms: occasional cough. *Notify Physician if: recurrent choking, fever, difficulty breathing, chest pain , or any new symptoms. *During Business Hours Contact: Dr. Shoemaker's office *After Business Hours Contact: The on-call provider for Dr. Shoemaker *Pending Lab/Results: No Pending Lab - Referrals/Follow Up *Referrals/Follow Up: Tunde Shoemaker MD [Primary Care Provider] - 04/18/18 8:45 am (F/U for aspiration pneumonia and mildly elevated LFTs APPOINTMENT WITH DR. SHOEMAKER ON 04/18/2018 AT 8:45 am) - Patient Handouts Patient Handouts: Aspiration Pneumonia (DC) - Dismissal Complete Discharge Instructions are:: Complete Physician Narrative - Narrative Attestation Narrative: Date: 04/12/18 Time: 1647 Pt doing well this am. Tolerating PO intake well, no further choking episodes. Pt evaluated by speech and cleared. Pt did not have any cough, sob or f/c. Pt was discharged with 7 total days of Augmentin for aspiration pna. Pt had mild transaminitis and Sono showed hepatic steatosis. Hep panel was pending. Pt noted questionable hx of Hep C. It was recommended to pt to f/u with PCP to further work up liver enzymes and to follow up on hep panel when it results. Gen: No distress, AAOx3 Cards: RRR without murmurs Abd: soft, no tender
== END 2018-04-12 16:27 | disposition home or self-care (01) ==
LOC: ED 13:38 → EDHOLD 13:38 → MED 18:16
PROVIDERS: ADMIT Internal Medicine; ATTEND Internal Medicine